=== PATIENT | female | born 1955 | race Asian ===

== ENCOUNTER 2025-02-21 17:47 | Emergency (ER) | payer MEDICARE ==
[~2025-02-21] VITALS: Ht 160 cm; Wt 50.0 kg
[2025-02-21 17:50] VITALS: O2SAT 100
[2025-02-21 18:52] LABS: BASOPHILS % 0.7 % (0.0-2.0); EOSINOPHILS % 2.1 % (0.0-5.0); HEMATOCRIT. 41.0 % (36.0-48.0); HEMOGLOBIN. 13.3 g/dL (12.0-16.0); LYMPHOCYTES % 17.8 % (20.0-50.0); MEAN PLATELET VOLUME 8.0 fl (7.4-10.4); MONOCYTES % 9.9 % (2.0-8.0); NEUTROPHILS % 69.5 % (40.0-76.0); PLATELET 192 x1000/uL (130-400); RED BLOOD CELL COUNT 4.65 mill/uL (4.2-5.4); RED CELL DISTRIBUTION WIDTH 13.8 % (11.6-14.6)
[2025-02-21 19:09] LABS: CREATININE 0.7 mg/dL (0.6-1.0)
[2025-02-21 19:10] LABS: PROTEIN TOTAL 7.2 g/dL (6.0-8.3); TROPONIN I HIGH SENSITIVITY < 4 ng/L (3.0-34); UREA NITROGEN BLOOD 13 mg/dL (9-23)
[2025-02-21 19:11] LABS: ASPARTATE AMINOTRANSFERASE 27 IU/L (<34)
[2025-02-21 19:12] LABS: BILIRUBIN DIRECT < 0.1 mg/dL (<=3.0); BILIRUBIN TOTAL 0.4 mg/dL (0.1-1.0)
[2025-02-21 19:22] LABS: INR 0.9
[2025-02-21 21:57] LABS: TROPONIN I HIGH SENSITIVITY < 4 ng/L (3.0-34)
[2025-02-21 22:15] VITALS: BP 123/88; PULSE 70; RESP 16; TEMP 36.7; O2SAT 100
== END 2025-02-21 22:36 | disposition home or self-care (01) ==
LOC: ER 17:47 → CMPBEDREQ 02-23 10:34
DX: R00.2 Palpitations (principal); F41.0 Panic disorder [episodic paroxysmal anxiety]; I10 Essential (primary) hypertension; Z87.891 Personal history of nicotine dependence; R06.02 Shortness of breath
CPT/HCPCS: 36415; 71045; 80048; 80076; 83735; 83880; 84484; 85025; 85379; 93005; 99284